=== PATIENT | female | born 1980 | race Caucasian/White ===

== ENCOUNTER 2024-06-06 12:58 | Emergency (ER) | payer BC, SELFPAY ==
[2024-06-06 13:09] VITALS: BP 152/93; PULSE 87; RESP 19; TEMP 36.9; O2SAT 100
--- NOTE | 2024-06-06 13:09 | ED.GENADULT ---
HPI - General Adult General Chief complaint: Unspecified Stated complaint: Left Side Facial Pain Time Seen by Provider: 06/06/24 13:10 Source: patient, RN notes reviewed and old records reviewed Mode of arrival: ambulatory Limitations: no limitations History of Present Illness HPI narrative: 44-year-old female presents to the [facility] with complaints of left-sided facial pain that started this morning Patient reports pain is worse through her jaw, stops midline Reports pressure from the ear and sometimes behind her eye. Related Data Allergies Allergy/AdvReac Type Severity Reaction Status Date / Time Cephalosporins Allergy Unknown Rash Verified 06/06/24 13:10 medroxyprogesterone Allergy Unknown Rash Verified 06/06/24 13:10 Sulfa (Sulfonamide Allergy Unknown Rash Verified 06/06/24 13:10 Antibiotics) Review of Systems Review of Systems: All systems reviewed & are unremarkable except as noted in HPI and below Constitutional: Constitutional: Reports no additional constitutional complaints Eyes: Eyes: Reports no additional eye complaints ENT: Reports as per HPI and Reports other (Left-sided facial pain) Cardiovascular: Cardiovascular: Reports no additional cardiovascular complaints, Denies chest pain and Denies dyspnea Respiratory: Respiratory: Reports no additional respiratory complaints, Denies chest congestion, Denies cough and Denies dyspnea Gastrointestinal: Gastrointestinal: Reports no additional gastrointestinal complaints, Denies abdominal pain, Denies nausea and Denies vomiting Musculoskeletal: Musculoskeletal: Reports no additional musculoskeletal complaints Integumentary/Breasts: Skin/Breast: Reports system reviewed and no additional complaints, except as docu Neurologic: Reports system reviewed and no additional complaints, except as documented Psychiatric: Psychiatric: Reports no additional psychiatric complaints Allergic/Immunologic: Allergic/Immunologic: Reports no additional allergic/immunologic complaints [facility] Past Medical History Medical History History of vocal cord paralysis Surgical History Surgical History Hx of gastric bypass Family History Family History Grandparent Family history of thyroid disease Family history of malignant neoplasm of breast Mother Hypertension Family history of diabetes mellitus in first degree relative Father Family history of heart disease in male family member before age 55 Social History Social History Smoking status: Never smoker Alcohol intake: current Substance use: current Substance use type: marijuana Comments At the time of my signature, I reviewed and agree with the nursing past medical, surgical, social, and family history. There is no relevant family history pertinent to the patient complaint. Exam Const: General: cooperative, healthy appearing, comfortable, no acute distress, well developed, alert and well nourished Nutritional Appearance: well nourished Orientation/consciousness: patient oriented x3 Limitations: no limitations HENMT: Head: normal to inspection Ears: hearing grossly normal bilaterally, external ears normal, TM's normal bilaterally, EAC's normal, mastoids normal and no periauricular adenopathy Face/Nose/Sinus: Normal external nose present, Normal nares present, Normal nasal mucous membranes and turbinates present, normal facial exam, sinuses nontender, face symmetric, No ecchymosis and No Facial tenderness on exam of face and sinuses Face and sinus: normal facial exam, face symmetric, no abrasions, no ecchymosis and no erythema Mouth: Yes Normal oral and palatal mucosa present, Yes lip normal and Yes tongue normal Throat: posterior oropharynx normal, uvula midline and no uvular edema Eyes: General
== END 2024-06-06 13:35 | disposition home or self-care (01) ==
PROVIDERS: Emergency Provider Nurse Practitioner; PCP Family Medicine
DX: G50.0 Trigeminal neuralgia (principal); Z98.84 Bariatric surgery status
CPT/HCPCS: 99213; G0463